=== PATIENT | male | born 1985 | race Caucasian/White ===

== ENCOUNTER 2017-03-30 20:19 | Emergency (ER) | payer MEDICAID ==
[2017-03-30] MEDS: DEXAMETHASONE 10 MG/ML 1 ML INJ IM (22:17)
[2017-03-30] MEDS: IPRATROPIUM (NEB) 0.5 MG/2.5 ML AMP NEB (22:26)
[2017-03-30] MEDS: ALBUTEROL 0.5% (NEB) 2.5 MG/0.5 ML AMP INH (22:27)
== END 2017-03-31 00:04 | disposition home or self-care (01) ==
LOC: FTE 03-31 00:04
DX: J20.9 Acute bronchitis, unspecified (principal)
CPT/HCPCS: 71045; 94644; 96372; 99284-25

== ENCOUNTER 2018-02-25 04:56 | Emergency (ER) | payer MEDICAID | END 2018-02-25 05:57 | disposition home or self-care (01) | LOC: FTE 04:56 | DX: R05 Cough (principal) | CPT/HCPCS: 99283 ==